=== PATIENT | female | born 1935 | race Caucasian/White ===

== ENCOUNTER 2016-07-05 05:41 | Inpatient (IN) | payer OTHER ==
--- NOTE | 2016-06-19 15:42 | PAT Medication Instructions ---
Service Date Jun 19, 2016. Current Home Medication List Amlodipine (Norvasc), 5 MG PO QAM Aspirin Enteric Coated (Ecotrin Or Generic *), 81 MG PO 3XWK Atorvastatin (Lipitor), 10 MG PO QPM Benazepril (Lotensin), 20 MG PO QAM Calcium Citrate-Vitamin D (Citracal + D3 Maximum), 1 TAB PO BID Cholecalciferol (Vitamin D3), 1 TAB PO QPM Fish Oil ([place]-3), 1,400 MG PO QPM Ibandronate Sodium (Boniva), 150 MG PO MONTHLY Multivitamin (Multivitamin), 1 TAB PO 3XWK Naproxen (Aleve), 220 MG PO PRN Vitamin B Cmplx/Vitc/Folic Ac (Nephrocaps), 1 CAP PO QAM [Metrogel], 1 DOSE TOP HS Medication Instructions For Your Scheduled Surgery - Continue as directed: Ibandronate Sodium (Boniva), 150 MG PO MONTHLY - Hold the following medications 2 weeks prior to surgery: Fish Oil ([place]-3), 1,400 MG PO QPM - Hold the following medications the morning of surgery: Benazepril (Lotensin), 20 MG PO QAM Calcium Citrate-Vitamin D (Citracal + D3 Maximum), 1 TAB PO BID Multivitamin (Multivitamin), 1 TAB PO 3XWK Vitamin B Cmplx/Vitc/Folic Ac (Nephrocaps), 1 CAP PO QAM Naproxen (Aleve), 220 MG PO PRN - Take the following medications the morning of surgery with a sip of water OTHERWISE NOTHING TO EAT OR DRINK AFTER MIDNIGHT: Amlodipine (Norvasc), 5 MG PO QAM Aspirin Enteric Coated (Ecotrin Or Generic *), 81 MG PO 3XWK - Take the following medications as scheduled the night before surgery: Atorvastatin (Lipitor), 10 MG PO QPM Calcium Citrate-Vitamin D (Citracal + D3 Maximum), 1 TAB PO BID Cholecalciferol (Vitamin D3), 1 TAB PO QPM [Metrogel], 1 DOSE TOP HS If you have any questions please call us at [phone] (Gail Ye PA-C ) or [phone] or [phone]
[2016-06-19 16:04] LABS: BASO % 0.1 %; BASO ABS # 0.01 K/uL (0-0.2); COMPLETE YES; EOS % 2.5 %; HEMATOCRIT 37.4 % (37-47); IG% 0.3 %; LYMPH % 28.5 %; LYMPH ABS # 2.17 K/uL (1.2-3.4); MEAN CELL VOLUME 86.6 fL (80-100); MEAN CORPUSCULAR HEMOGLOBIN 29.6 pg (25-34); MEAN CORPUSCULAR HGB CONC 34.2 g/dl (32-36); MEAN PLATELET VOLUME 9.5 fL (7.4-10.4); MONO % 8.4 %; NEUT % 60.2 %; PLATELET COUNT 262 K/uL (130-400); RED BLOOD COUNT 4.32 M/uL (4.2-5.4); WHITE BLOOD COUNT 7.62 K/uL (4.8-10.8)
--- NOTE | 2016-06-19 16:20 | DIAGNOSTIC IMAGING REPORT ---
TWO VIEW CHEST CLINICAL HISTORY: Preoperative examination. FINDINGS: PA and lateral chest radiographs are compared to study dated 12/06/2010. The cardiomediastinal silhouette is unremarkable. There is atherosclerotic calcification of the thoracic aorta. Chronic interstitial thickening is noted. There is mild chronic elevation of the right hemidiaphragm. No airspace consolidation or pleural effusion is seen. There is no pneumothorax. The skeletal structures are osteopenic. Degenerative change mild scoliosis is noted in the thoracic spine. IMPRESSION: No active disease in the chest. Electronically signed by: Aroldo Rosas M.D. 06/19/2016 4:18 PM Dictated Date/Time: 06/19/2016 4:17 PM
[2016-06-19 16:31] LABS: BUN/CREATININE RATIO 27.1 (10-20); CALCIUM 9.7 mg/dl (8.5-10.1); CREATININE 0.78 mg/dl (0.60-1.20); POTASSIUM 3.9 mmol/L (3.5-5.1)
[2016-06-20 17:05] LABS: INR 1.1 (0.9-1.1); PROTHROMBIN TIME (PATIENT) 11.3 SECONDS (9.0-12.0)
[~2016-07-05] VITALS: Ht 162.6 cm; Wt 54.6 kg
[2016-07-05] VITALS (20 sets, daily range): BP systolic 86–203; BP diastolic 33–91; PULSE 35–101; TEMP 34.6–36.6; O2SAT 93–100; Ht 162.6 cm; Wt 54.6 kg
[~2016-07-05 05:41] MED LIST: AMLO-110 PO; ASPEC81 PO; ATOR10TA88 PO; B-COCAP2 PO; BENA10TA10 PO; CALC1TAB9 PO; CHOL1000 PO; IBAN150T PO; METROGEL TOP; MULT-506 PO; NAPR1TAB9 PO; OMEG10007 PO
[2016-07-05] MEDS ORDERED: LACTATED RINGER'S 1000ML 1,000 ML IV SCH (06:00)
[2016-07-05] MEDS ORDERED: SODIUM CHLORIDE 0.9% 1000ML 1,000 ML IV SCH (06:00)
[2016-07-05] MEDS ORDERED: CEFAZOLIN 1000MG/55 ML D5W IV SCH (06:00)
--- NOTE | 2016-07-05 06:13 | History and Physical ---
History & Physical CC: Left internal carotid artery stenosis HPI: Ms. Weller states that she has no history of TIA or CVA. However, she does state that her sister who is her twin sister underwent a carotid artery surgery approximately 20 years ago due to the similar problem. She herself is a nonsmoker and states that her primary medical problems at this point consist of hypertension. The patient states that she went for an ultrasound of her carotid arteries due to having a history of some plaque in there and was found to have over 70% stenosis on ultrasound. She was then sent for a CTA evaluation , which indicated 80% stenosis of her left internal carotid artery. The patient denies any associated symptoms at this time including amaurosis, facial droop, difficulty speaking or swallowing, extremity weakness, numbness or tingling, sudden confusion or other complaints. 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 She states that she does not lose vision completely during these episodes and that they have been happening for years without any other associated symptoms. She denies fevers, chills, nausea, vomiting, chest pain, shortness of breath, abdominal pain, claudication, rest pain, nonhealing wounds or ulcers or other complaints. ALLERGIES: Include no known allergies. HOME MEDICATIONS: Reconciled on the chart and include the following: Aspirin, benazepril, Boniva, calcium/vitamin D, ciclopirox topical solution, EPA, fish oil, Lipitor, MetroGel 1% topical, multivitamin, Norvasc, vitamin B complex and vitamin D3. PAST MEDICAL HISTORY: Positive for hypercholesterolemia, hypertension, osteopenia and rosacea. PAST SURGICAL HISTORY: Positive for cataract surgery, oral surgery, tonsillectomy, tubal ligation. FAMILY HISTORY: Positive for carotid disease in her sister, heart disease and hypertension in her mother and father. SOCIAL HISTORY: Negative for tobacco, alcohol or drug use. REVIEW OF SYSTEMS: Negative for fatigue, fevers, sweats, weight loss, exercise intolerance, abnormal moles or rashes, vision changes or photophobia, ear pain, sinus problems or sore throat, cough, shortness of breath, hemoptysis or wheezing, chest pain, palpitations, edema or syncope, abdominal pain, nausea, vomiting, diarrhea, constipation, dysuria, hematuria, muscle weakness, headaches , dizziness, numbness or seizures. PHYSICAL EXAMINATION: Her vital signs are as follows: Blood pressure 162/66 in the right arm, 154/74 in the left, heart rate of 52, and oxygen 98% on room air. The patient is 162.56 cm tall and weighs 54.3 kilograms. Constitutional: In general, the patient is a healthy for age appearing, well-nourished, well- developed elderly female in no acute distress. She is active, alert and oriented x4 with normal recent and remote memory. Her head is normocephalic and atraumatic. Eyes are EOMI. Her ENMT exam demonstrates no hearing loss, rhinorrhea or pharyngeal erythema. Her neck is supple, nontender with midline trachea without masses or crepitus. Lung exam demonstrates no dyspnea. They are clear to auscultation bilaterally. Cardiovascular exam demonstrates nondisplaced apical impulse with a regular rate and rhythm without murmurs, lifts, heaves, thrills or gallops. Peripheral pulses full and equal in all extremities unless otherwise noted, specifically they are normal in her carotid , brachial, radial and femoral pulses. On her bilateral lower extremity distal pulses are +2 DP and +1 PT with brisk capillary refill and no sign of distal ischemia. The patient demonstrates a faint left carotid bruit, none on the right. She has no subclavian abdominal or femoral bruits noted. Her abdomen is soft, nontender with normoactive bowel sounds in all 4 quadrants without guarding or rebound. There is no flank or CVA tenderness. I am unable to appreciate any pulsatile mass. Her musculoskeletal exam demonstrates normal tone and strength for age. Bilateral upper extremities demonstrate no cyanosis , edema, clubbing, varicosities or ulcers. Bilateral lower extremities demonstrate no cyanosis, edema, clubbing, varicosities or ulcers. Neurologically, the patient has grossly intact cranial nerves and grossly intact sensation with a normal gait and station. 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 PLAN: Patient is admitted for a left CEA. I have discussed the risks options and benefits of the procedure with the patient. The patient understands the risks options and benefits and agrees to the procedure.
[2016-07-05 06:54] LABS: BUN/CREATININE RATIO 24.8 (10-20); CALCIUM 9.9 mg/dl (8.5-10.1); CREATININE 0.83 mg/dl (0.60-1.20); POTASSIUM 4.1 mmol/L (3.5-5.1)
[2016-07-05] MEDS ORDERED: PROPOFOL IV EMULSION 10 MG/ML 20 ML VIAL IV ONE (06:56)
[2016-07-05] MEDS ORDERED: LIDOCAINE HCL 2% 2 ML VIAL (20MG/ML) ONE (06:56)
[2016-07-05] MEDS ORDERED: FENTANYL CITRATE INJ 50 MCG/1 ML 2 ML VIAL ONE (06:56)
--- NOTE | 2016-07-05 07:17 | History & Physical Bridge Note ---
H&P Re-Evaluation Bridge Note: I have examined the patient, reviewed the History & Physical and in the interval since the performance of the History & Physical I have noted the following changes of clinical significance: No changes noted
[2016-07-05] MEDS ORDERED: IV FLUIDS COMPLETED PRN (07:45)
[2016-07-05] MEDS ORDERED: ROCURONIUM BROMID 50MG/5ML SYR ONE (08:31)
[2016-07-05] MEDS ORDERED: PHENYLEPHRINE HCL INJ 10 MG/ML VIAL ONE (08:31)
[2016-07-05] MEDS ORDERED: ROCURONIUM BROMIDE 10 MG/ML 5 ML VIAL ONE ×2 (08:31→08:44)
[2016-07-05] MEDS ORDERED: HEPARIN SOD (PORCINE) 1000 UNIT/ML 10 ML VIAL ONE (08:32)
[2016-07-05] MEDS ORDERED: ONDANSETRON INJ 2 MG/ML 2 ML VIAL ONE (09:13)
[2016-07-05] MEDS ORDERED: CEFAZOLIN SOD 1 GM VIAL IRRIG ONE (09:18)
[2016-07-05] MEDS ORDERED: HEPARIN SOD (PORCINE) 1000 UNIT/ML 10 ML VIAL FLUSH ONE (09:18)
[2016-07-05] MEDS ORDERED: GELATIN SPONGE 12-7MM TOP ONE (09:18)
[2016-07-05] MEDS ORDERED: THROMBIN FOR SOLN 20000 UNIT KIT TOP ONE (09:18)
[2016-07-05] MEDS ORDERED: BUPIVACAINE/EPINEPHRINE 0.5% MPF 1:200,000 30 ML VIAL INJ ONE (09:21)
[2016-07-05] MEDS ORDERED: D5W AND 1/2NSS 1,000 ML IV SCH (09:24)
[2016-07-05] MEDS ORDERED: NITROGLYCERIN/D5W 100 MCG/ML 250 ML IV PRN (09:24)
--- NOTE | 2016-07-05 09:25 | [facility] Post Operative Brief Note ---
Immediate Operative Summary Operative Date Jul 05, 2016. Pre-Operative Diagnosis Left internal carotid artery stenosis Post-Operative Diagnosis Same as preop Procedure(s) Performed Left Carotid Endarterectomy Surgeon Dr. Glover Limousine [employer]se Upholsterer Surgeon(s) Sandip Johnson PA-C Estimated Blood Loss 150 cc Findings Severe stenosis left ica origin Specimens A: left internal carotid artery plaque Anesthesia Alex Complication(s) None Disposition Recovery Room / PACU
[2016-07-05] MEDS ORDERED: METOPROLOL TARTRATE 1 MG/ML VIAL IV PRN (09:30)
[2016-07-05] MEDS ORDERED: ACETAMINOPHEN 325 MG TAB PO PRN (09:30)
[2016-07-05] MEDS ORDERED: MoRPHine SULFATE 4 MG/ML 1 ML CARP\\VIAL IV PRN (09:30)
[2016-07-05] MEDS ORDERED: OXYCODONE/ACETAMINOPHEN 5-325 TAB PO PRN (09:30)
[2016-07-05] MEDS ORDERED: ONDANSETRON INJ 2 MG/ML 2 ML VIAL IV PRN ×2 (09:30→10:00)
[2016-07-05] MEDS: LABETALOL HCL IV 5 MG/ML 20ML IV PRN ×2 (09:55→10:00)
--- NOTE | 2016-07-05 09:55 | OPERATIVE REPORT ---
DATE OF OPERATION: 07/05/2016 PREOPERATIVE DIAGNOSIS: Left internal carotid artery stenosis. POSTOPERATIVE DIAGNOSIS: Same. PROCEDURE: Left carotid endarterectomy with patch angioplasty. SURGEON: Dr. Glover. TURBO ELECTRIC OPERATOR: Aruna Johnson PA-C. ANESTHETIC: General. PROCEDURE INDICATIONS: The patient is an 80-year-old female in fairly good health who was found to have an 80% stenosis of her left carotid artery with what appeared to be soft hemorrhagic plaque. Endarterectomy was recommended. She understood the risks, options and benefits and agreed to go ahead with this procedure. OPERATION AND FINDINGS: The patient was taken to the operating room and placed in supine position. After general anesthesia was accomplished, left side neck was prepped and draped in a sterile manner. A longitudinal neck incision was then made. This was carried down through the platysmal layer. The common carotid artery was identified at the omohyoid muscle. Dissection was carried upward. She had extremely low bifurcation and bifurcation was fairly quickly. The internal and external carotid arteries were isolated. The internal was isolated beyond the area of narrowing. The hypoglossal could be seen up above the operative site. The external carotid was slung with vessel loops. and the superior thyroid artery with a 2-0 silk suture. The patient was heparinized at that time, adequate heparinization was accomplished. The external, internal and common carotid arteries were then clamped. Longitudinal arteriotomy was started on the common carotid artery extended upward along the internal carotid artery. The Doppler shunt was then placed in the internal followed by the common carotid artery. They were held in place with Last clamps. The flow could be heard going through the shunt at that time. The arteriotomy had been extended above and below where the plaque was. The plaque was a fairly large sized calcified plaque with a small area of subacute hemorrhage. It caused a near occlusion of the internal carotid artery at its origin. Endarterectomy was started on the common carotid artery. This was extended upward along the internal until a nice feathering breakoff point was accomplished. This was done fairly easily. The endarterectomy was then carried down along the common carotid artery. Proximal breakoff point was accomplished using the Pott scissors. The external carotid was everted and endarterectomized. After the plaque was removed all loose debris and flaps were removed under loop magnification. After this was done, I inspected the proximal breakoff point. A slight little more plaque was removed and breakoff point was smoothed out with Pott scissors. Distally there was a fairly good breakoff point. There was one area which was a little concerning of being a little bit loose in the back wall. This was tacked down with two 7-0 Prolene sutures. After that was completed, the arteriotomy site was then closed using the Acuseal patch and CV6 Holland-Van suture. Prior to completing the closure the shunt was removed. Backbleeding and forward bleeding was allowed to occur. The clamps were replaced. The flow surface was irrigated with heparinized saline. The final few sutures were placed and securely tied. Clamps were removed off the external common followed by the internal carotid artery. We did backbleed the internal and external prior to unclamping. Adequate hemostasis was then noted. There was slight needle hole bleeding along the medial aspect. This was controlled with Gelfoam and thrombin. After adequate hemostasis was noted, the wound was irrigated with antibiotic solution and closed with a running 3-0 Vicryl suture for the platysmal layer and a 4-0 subcuticular Vicryl suture for the skin edges. Dermabond was used for a dressing. The patient left the operating room in good condition and tolerated the procedure well. Aruna Johnson assisted due to lack of resident availability. I attest to the content of the Intraoperative Record and any orders documented therein. Any exceptions are noted below. VICKY
[2016-07-05] MEDS ORDERED: FENTANYL CITRATE INJ 50 MCG/1 ML 2 ML VIAL IV PRN (10:00)
[2016-07-05] MEDS ORDERED: PHENYLEPHRINE 100MCG/ML 5ML SYR IV PRN (10:00)
[2016-07-05] MEDS ORDERED: ATROPINE SULFATE 0.1 MG/ML 5ML SYR IV PRN (10:00)
[2016-07-05] MEDS ORDERED: PROMETHAZINE HCL INJ 6.25 MG in SODIUM CHLORIDE 0.9% 50ML 50 ML IV PRN (10:00)
[2016-07-05] MEDS ORDERED: EpHEDrine SULFATE INJ 50 MG/ML AMP IV PRN (10:00)
--- NOTE | 2016-07-05 10:29 | DIAGNOSTIC IMAGING REPORT ---
CT OF THE HEAD WITHOUT CONTRAST CLINICAL HISTORY: Severe left sided headache following left carotid endarterectomy. COMPARISON STUDY: Head CT May 29, 2007 and MRI of the brain July 01, 2014. CT DOSE: 912.23 mGycm TECHNIQUE: Helical axial images of the head were obtained without IV contrast. Automated exposure control was utilized for the study. FINDINGS: No acute intracranial hemorrhage, midline shift or mass effect is present. Ventricular system is unremarkable. The basilar cisterns are patent. There are no extra-axial collections. Moderate white matter hypodensities likely reflect small vessel disease. There is equivocal loss of jeter-white differentiation within the left insular cortex. This could be artifactual. There are no significant calvarial abnormalities. Visualized portions of the sinuses and mastoid air cells are clear. IMPRESSION: 1. No acute intracranial hemorrhage or mass effect. 2. Equivocal loss of jeter-white differentiation within the left insular cortex. This may be artifactual. However, if suspicion for acute infarct, an MRI could be obtained. Electronically signed by: Sergio Stevens M.D. 07/05/2016 10:28 AM Dictated Date/Time: 07/05/2016 10:21 AM
--- NOTE | 2016-07-05 11:03 | Critical Care Consultation ---
Critical Care Consultation Date of Consultation: Jul 05, 2016. Attending Physician: Seth Glover M.D. Reason for Consultation: Post CEA bradycardia History of Present Illness This is an 80 y/o F with a history of HTN, DLD who was admitted today for left carotid endarterectomy. This was an elective procedure after being found to have 80% stenosis on CTA eval outpatient. She was not symptomatic from this. She does have a history of ocular migraines. After the procedure she was found to be bradycardic (though she tends to live with a lower HR generally) and there was concern for CVA/TIA. She did have a headache prior to the procedure and was started on Nitro drip. She was transferred to the ICU for further management. Past Medical/Surgical History Cataract surgery, oral surgery, tonsillectomy, tubal ligation. Family History Carotid stenosis - sister CAD, HTN- mom, dad Social History Smoking Status: Never Smoker Alcohol Use: none Drug Use: none Allergies Coded Allergies: Cholesterol (Verified Allergy, Unknown, UNKNOWN CHOLESTEROL MED - MYALGIA , 07/05/16) Home Medications Scheduled Amlodipine (Norvasc), 5 MG PO QAM Aspirin Enteric Coated (Ecotrin Or Generic *), 81 MG PO 3XWK Atorvastatin (Lipitor), 10 MG PO QPM Benazepril (Lotensin), 20 MG PO QAM Calcium Citrate-Vitamin D (Citracal + D3 Maximum), 1 TAB PO BID Cholecalciferol (Vitamin D3), 1 TAB PO QPM Fish Oil ([place]-3), 1,400 MG PO QPM Ibandronate Sodium (Boniva), 150 MG PO MONTHLY Multivitamin (Multivitamin), 1 TAB PO 3XWK Naproxen (Aleve), 220 MG PO PRN Vitamin B Cmplx/Vitc/Folic Ac (Nephrocaps), 1 CAP PO QAM [Metrogel], 1 DOSE TOP HS Current Inpatient Medications Current Inpatient Medications Medications (Trade) Dose Ordered Sig/Anaid Route Start Time Stop Time Status Last Admin Dose Admin Lactated Ringer's 1,000 ml @ 15 mls/hr Q24H IV 07/05/16 06:00 07/06/16 05:59 07/05/16 06:50 15 MLS/HR Sodium Chloride 1,000 ml @ 80 mls/hr [id number] IV 07/05/16 06:00 07/05/16 18:29 07/05/16 06:25 80 MLS/HR Cefazolin Sodium (Ancef 1000mg/55 ml D5W) 55 ml @ 100 mls/hr PREOP IV 07/05/16 06:00 07/06/16 05:59 Miscellaneous (Iv Fluids Completed) 1 ea PRN PRN N/A 07/05/16 07:45 07/05/17 07:44 Acetaminophen (Tylenol Tab) 650 mg Q4H PRN PO 07/05/16 09:30 08/04/16 09:29 UNV Oxycodone/ Acetaminophen (Percocet 5-325mg Tab) FOR MODERATE PAIN ... Q4H PRN PO 07/05/16 09:30 07/19/16 09:29 UNV Morphine Sulfate (MoRPHine SULFATE INJ) 4 mg Q4H PRN IV 07/05/16 09:30 07/19/16 09:29 UNV Ondansetron HCl 4 mg 4 mg Q6H PRN IV 07/05/16 09:30 08/04/16 09:29 UNV Cefazolin Sodium/ Dextrose (Ancef Iv/D5 50ml) 55 ml @ 100 mls/hr Q8H IV 07/05/16 09:30 07/05/16 18:02 UNV Metoprolol Tartrate 5 mg 5 mg Q10M PRN IV 07/05/16 09:30 08/04/16 09:29 UNV Nitroglycerin/ Dextrose 250 ml @ 0 mls/hr Q0M PRN IV 07/05/16 09:24 08/04/16 09:23 UNV Dextrose/Sodium Chloride (D5W And 1/2nss) 1,000 ml @ 125 mls/hr Q8H IV 07/05/16 09:24 08/04/16 09:23 UNV Enoxaparin Sodium (Lovenox Inj) 30 mg Q12H SQ 07/05/16 20:00 08/04/16 19:59 UNV Fentanyl Citrate (Fentanyl Inj) 50 mcg Q5M PRN IV 07/05/16 10:00 07/05/16 16:00 Ondansetron HCl 4 mg 4 mg ONE PRN IV 07/05/16 10:00 07/05/16 16:00 Promethazine HCl/ Sodium Chloride (Phenergan Inj/ Nss 50ml) 50.25 ml @ 202 mls/hr ONE PRN IV 07/05/16 10:00 07/05/16 16:00 Labetalol HCl (Normodyne IV) 5 mg Q5M PRN IV 07/05/16 10:00 07/05/16 16:00 Ephedrine Sulfate (EpHEDrine SULFATE INJ) 5 mg Q5M PRN IV 07/05/16 10:00 07/05/16 16:00 Atropine Sulfate (Atropine Sulfate 0.1MG/Ml Inj) 0.5 mg Q1M PRN IV 07/05/16 10:00 07/05/16 16:00 Phenylephrine HCl 100 mcg 100 mcg Q5M PRN IV 07/05/16 10:00 07/05/16 16:00 Methylprednisolone Sodium Succinate/ Syringe (Solu-Medrol IV/ Syringe) 0.64 ml @ 1.5 mls/min Q6 IV 07/05/16 10:15 07/06/16 00:01 UNV Review of Systems Constitutional: No chills, No fever Eyes: No worsening of vision ENT: + problem reported (pain along left neck/ cheek), No hearing loss Respiratory: No cough, No dyspnea on exertion, No shortness of breath, No sputum, No wheezing Cardiovascular: No chest pain Abdomen: No nausea, No pain, No vomiting Genitourinary - Female: No dysuria, No urinary frequency, No urinary urgency Physical Exam Date Time Temp Pulse Resp B/P Pulse Ox O2 Delivery O2 Flow Rate FiO2 07/05/16 06:15 36.6 50 18 165/79 98 Room Air 07/05/16 06:14 36.6 54 18 151/71 98 Room Air General Appearance: WD/WN, no apparent distress Head: normocephalic, atraumatic Eyes: normal inspection, PERRL, EOMI ENT: hearing grossly normal Neck: supple, trachea midline, + pertinent finding (S/P Left CEA, scar is clean dry intact, no midline shift ) Respiratory/Chest: lungs clear, normal breath sounds, no respiratory distress Cardiovascular: no edema, + bradycardia Abdomen/GI: normal bowel sounds, non tender, soft Extremities/Musculoskelatal: normal inspection, no calf tenderness, no pedal edema 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, no motor/sensory deficits, alert, normal mood/affect Skin: normal color Laboratory Results Last 24 Hours Test 07/05/16 05:56 07/05/16 06:08 Sodium Level 144 mmol/L Potassium Level 4.1 mmol/L Chloride Level 108 mmol/L Carbon Dioxide Level 28 mmol/L Anion Gap 8.0 mmol/L Blood Urea Nitrogen 21 mg/dl Creatinine 0.83 mg/dl Est Creatinine Clear Calc Drug Dose 44.6 ml/min Estimated GFR () 76.1 Estimated GFR (Non- 65.7 BUN/Creatinine Ratio 24.8 Random Glucose 96 mg/dl Calcium Level 9.9 mg/dl Bedside Glucose 84 mg/dl Assessment & Plan This is an 80 y/o F who is day 0 s/p Left CEA, admitted to the ICU for bradycardia and questionable neurological symptoms after the procedure. Concerns s/p CEA include hemodynamic or neurologic compromise as well as hematoma which she will be monitored for while in the ICU. Asymptomatic Bradycardia: Patient tends to run lower On nitro drip for HTN and hemodynamic stability after vascular surgery Given a small dose of labetalol; unlikely to have a major effect and will resolve quickly will continue to monitor ? Neurologic symptoms Obviously a concern for embolic phenomena, CVA/TIA after CEA. However, At the moment her Neuro exam is normal. She looks as if she has a left sided droop however, this is likely due to the pain/ discomfort after the procedure. CN 2- 12 intact. Will do neuro checks Hold on Tele neuro consult for now. Head CT with no hemorrhage or mass effect s/p Left CEA Repeat ultrasound at bedside is concerning for an area of echogenicity, ?clot, confirmed by radiology- Dr. Glover notified HTN: Recommend nicardipine over nitro drip due to headaches. attending addendum, post op day 0, CEA on the left, the pt started with sinus bradycardia but good BP requiring NTG drip to lower it. started on oral intake and able to swallow without difficulty. I have examined the pt several times neurologically which showed, all cranial nerves II to XII to be intact to my exam. on three different occasions. 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 the pt is alert and oriented, minimal facial numbness and weakness on the left due to recent intubation , which has been improving. the pt is able to tolerate oral intake. no dysphagia. bradycardia is improving. BP is recovering , NTG drip is weaning as well. carotid US results noted and discussed with Dr. Glover , will continue to follow clinically, no evidence of any neurologic compromise , no hematoma at the surgical site. BP and HR returning to normal. discussed in details with several services including vascular, radiology and nursing staff at the bed side. CCT 60 min.
[2016-07-05] MEDS: METHYLPREDNISOLONE IV 40 MG in SYRINGE 0 ML IV SCH ×3 (11:23→22:59)
[2016-07-05] MEDS ORDERED: CEFAZOLIN IV 1,000 MG in DEXTROSE 5% 50ML 50 ML IV SCH ×2 (11:30→18:00)
--- NOTE | 2016-07-05 11:37 | DIAGNOSTIC IMAGING REPORT ---
ULTRASOUND CAROTID DOPPLER LEFT SIDE ONLY CLINICAL HISTORY: Severe headache status post carotid artery to be COMPARISON STUDY: CT angiography dated 05/25/2016 TECHNIQUE: Real-time, grayscale, and color Doppler sonography of the carotid arteries was performed. Imaging reviewed in the transverse and longitudinal planes. NASCET criteria was utilized for stenosis calcification. FINDINGS: There is an area of intraluminal echogenicity within the proximal aspect of the left carotid bulb. This difficult to determine whether this reflects thrombus, or artifact from recent surgery. The peak systolic velocity within the left internal carotid artery was 157 cm/s. The peak systolic velocity within the left common carotid artery was 50 cm/s. This yields an elevated systolic to diastolic ratio 3.1. In addition there is an elevated external carotid artery velocity of 464 cm/s. The left tibial artery was patent. The limitations of an immediate postsurgical ultrasound were discussed with Dr. Glover. CT angiography of the head and neck was recommended in follow-up. IMPRESSION: 1. Difficult study to interpret 2. Area of apparent absent flow and echogenicity at the level the proximal carotid bulb. It is conceivable this is artifactual given the recent surgery. This could represent dirty shadowing from air at the operative bed.. 3. Elevated external carotid artery velocity, suggesting a external carotid artery stenosis. 4. Although the left internal carotid artery waveform demonstrated a normal upstroke, the velocity was mildly elevated measuring 157 cm/s. 5. Given the indeterminate ultrasound findings, and the patient's clinical history, CT angiography of the head and neck is recommended in follow-up. This report was discussed with Dr. Glover. Electronically signed by: Aaron Stiles M.D. 07/05/2016 11:35 AM Dictated Date/Time: 07/05/2016 11:22 AM
[2016-07-05] MEDS ORDERED: AMIODARONE 360MG / 200ML D5W ONE (12:28)
[2016-07-05] MEDS ORDERED: AMIODARONE 150MG / 100ML D5W ONE (12:28)
--- NOTE | 2016-07-05 12:47 | Anesthesiology Progress Note ---
Anesthesia Post Op Note Date & Time Jul 05, 2016 at 12:44 Vital Signs Pain Intensity: 2 Vital Signs Past 12 Hours Date Time Temp Pulse Resp B/P Pulse Ox O2 Delivery O2 Flow Rate FiO2 07/05/16 12:15 40 18 119/54 100 Nasal Cannula 2.0 113/42 07/05/16 12:00 34.6 35 16 107/63 100 Nasal Cannula 2.0 118/44 07/05/16 11:45 39 14 139/60 100 Nasal Cannula 4.0 129/46 07/05/16 11:15 33 10 127/57 100 Nasal Cannula 4 112/29 07/05/16 11:00 34.7 40 16 140/59 100 Nasal Cannula 4 143/49 07/05/16 10:45 35 13 137/57 100 Mask 4 134/46 07/05/16 10:30 34.5 37 14 144/65 100 Mask 10 07/05/16 10:05 50 16 160/69 100 Mask 10 169/68 07/05/16 10:00 53 16 180/73 100 Mask 10 184/80 07/05/16 09:50 51 16 142/64 100 Mask 10 156/68 07/05/16 09:40 36.2 52 16 173/68 100 Mask 10 177/83 07/05/16 06:15 36.6 50 18 165/79 98 Room Air 07/05/16 06:14 36.6 54 18 151/71 98 Room Air Notes Mental Status: alert / awake / arousable, participated in evaluation Pt Amnestic to Procedure: Yes Nausea / Vomiting: adequately controlled Pain: adequately controlled Airway Patency, RR, SpO2: stable & adequate BP & HR: stable & adequate Hydration State: stable & adequate Anesthetic Complications: no major complications apparent Patient not sufficiently responsive to labetalol intermittant boluses for HTN. Dr Glover ordered NTG gtt which was effective for pain control. Shortly before leaving PACU, the patient did have an acute facial droop per staffing rn which very quickly resolved and she also complained of a headache. The patient was transported to CT which was read as no acute infarct or bleed, and she was immediately transported to the ICU for her planned overnight stay. In the ICU the patient was completely neurologically intact and at baseline. 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 The copper miner had also evaluated the patient and assumed continuing management of her care at this point.
--- NOTE | 2016-07-05 13:34 | Progress Note ---
Progress Note I assisted Dr Glover with Keith Weller's Left Carotid Endarterectomy on 07/05/16, d /t lack of resident availability.
[2016-07-05] MEDS ORDERED: NURSING VERBAL MED ORDER ONE (15:15)
[2016-07-05] MEDS: SODIUM CHLORIDE 0.9% 1000ML 1,000 ML IV SCH ×2 (15:24→22:59)
[2016-07-05] MEDS ORDERED: SODIUM CHLORIDE 0.9% 500ML 500 ML IV ONE (15:30)
[2016-07-05] MEDS: ENOXAPARIN 30 MG/0.3 ML SYR SQ SCH (20:25)
[2016-07-06] VITALS (24 sets, daily range): BP systolic 101–184; BP diastolic 38–111; PULSE 48–81; TEMP 36.6–36.7; O2SAT 94–100
[2016-07-06] MEDS: METHYLPREDNISOLONE IV 40 MG in SYRINGE 0 ML IV SCH (05:15)
[2016-07-06] MEDS: SODIUM CHLORIDE 0.9% 1000ML 1,000 ML IV SCH (07:49)
[2016-07-06] MEDS: ENOXAPARIN 30 MG/0.3 ML SYR SQ SCH (07:50)
[2016-07-06] MEDS ORDERED: AMLODIPINE BESYLATE 5 MG TAB PO SCH (09:00)
[2016-07-06] MEDS ORDERED: ENALAPRIL MALEATE 10 MG TAB PO SCH (09:00)
--- NOTE | 2016-07-06 10:10 | Critical Care Progress Note ---
Critical Care Progress Note Date of Service Jul 06, 2016. Attending Dr. Becerra Subjective asymptomatic and no events overnight. BP controlled, no neuro deficit over the monitoring for the past 24 hours. Objective asymptomatic except for mild numbness in the left lower lip area, improving slowly, no dysphagia or dysphonia, no focal weakness , no pain or sob. the rest of her ROS was unremarkable. Assessment & Plan CEA left sided. 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 no effect on fine skills including swallowing and phonation. HTN, on ACEI and Amlodipine at home. Plan: dc A line. dc IVF, the pt is orally fed. resume ACEI and amlodipine. discussed with the staff on rounds. ambulate. disposition plan per Dr. Glover. pt eval. CCt 35 min, Data Medications: Current Inpatient Medications Medications (Trade) Dose Ordered Sig/Anaid Route Start Time Stop Time Status Last Admin Dose Admin Miscellaneous (Iv Fluids Completed) 1 ea PRN PRN N/A 07/05/16 07:45 07/05/17 07:44 Acetaminophen (Tylenol Tab) 650 mg Q4H PRN PO 07/05/16 09:30 08/04/16 09:29 Oxycodone/ Acetaminophen (Percocet 5-325mg Tab) FOR MODERATE PAIN ... Q4H PRN PO 07/05/16 09:30 07/19/16 09:29 Morphine Sulfate (MoRPHine SULFATE INJ) 4 mg Q4H PRN IV 07/05/16 09:30 07/19/16 09:29 Ondansetron HCl (Zofran Inj) 4 mg Q6H PRN IV 07/05/16 09:30 08/04/16 09:29 Metoprolol Tartrate 5 mg 5 mg Q10M PRN IV 07/05/16 09:30 08/04/16 09:29 Nitroglycerin/ Dextrose (Nitroglycerin/ D5w 100 Mcg/Ml) 250 ml @ 0 mls/hr Q0M PRN IV 07/05/16 09:24 08/04/16 09:23 Enoxaparin Sodium (Lovenox Inj) 30 mg Q12H SQ 07/05/16 20:00 08/04/16 19:59 07/06/16 07:50 30 MG Amlodipine Besylate (Norvasc Tab) 5 mg QAM PO 07/06/16 09:00 08/05/16 08:59 Enalapril Maleate (Vasotec Tab) 10 mg QAM PO 07/06/16 09:00 08/05/16 08:59 I & O: 24-Hour Column 07/06/16 08:00 Intake Total 4454 ml Output Total 3025 ml Balance 1429 ml Vital Signs: Date Time Temp Pulse Resp B/P Pulse Ox O2 Delivery O2 Flow Rate FiO2 07/06/16 07:30 Room Air 07/06/16 05:00 49 1 123/51 99 Nasal Cannula 2.0 106/38 07/06/16 04:00 36.6 50 0 116/49 98 Nasal Cannula 2.0 110/42 07/06/16 04:00 Room Air 07/06/16 03:00 57 15 130/48 100 Nasal Cannula 2.0 157/55 07/06/16 02:00 49 12 107/44 99 Nasal Cannula 2.0 130/52 07/06/16 01:00 48 12 101/38 94 Nasal Cannula 2.0 126/51 07/06/16 00:01 Room Air 07/05/16 23:58 36.6 49 17 151/54 93 Room Air 152/66 07/05/16 23:24 63 16 174/69 93 Room Air 187/83 07/05/16 22:55 72 17 179/74 97 Room Air 171/90 07/05/16 22:15 101 17 162/62 98 Room Air 166/78 07/05/16 22:01 101 23 195/89 98 Room Air 203/91 07/05/16 21:01 76 17 131/47 98 Room Air 153/75 07/05/16 20:00 36.4 64 25 157/57 99 Room Air 151/58 07/05/16 20:00 Room Air 07/05/16 18:00 56 18 127/70 97 Room Air 151/61 07/05/16 16:00 Room Air 07/05/16 16:00 36.4 61 21 134/56 97 Room Air 145/64 07/05/16 15:57 54 14 142/79 98 Room Air 137/55 07/05/16 15:30 53 26 128/56 94 Room Air 112/44 07/05/16 15:00 46 16 110/44 100 Nasal Cannula 2.0 98/39 07/05/16 14:22 44 15 104/44 100 Nasal Cannula 2.0 92/39 07/05/16 14:00 40 13 98/44 100 Nasal Cannula 2.0 86/34 07/05/16 13:30 40 13 106/46 100 Nasal Cannula 2.0 90/33 07/05/16 13:15 56 16 134/53 100 Nasal Cannula 2.0 121/53 07/05/16 12:15 40 18 119/54 100 Nasal Cannula 2.0 113/42 07/05/16 12:00 34.6 35 16 107/63 100 Nasal Cannula 2.0 118/44 07/05/16 11:45 39 14 139/60 100 Nasal Cannula 4.0 129/46 07/05/16 11:15 33 10 127/57 100 Nasal Cannula 4 112/29 07/05/16 11:00 34.7 40 16 140/59 100 Nasal Cannula 4 143/49 07/05/16 10:45 35 13 137/57 100 Mask 4 134/46 07/05/16 10:30 34.5 37 14 144/65 100 Mask 10 07/05/16 10:05 50 16 160/69 100 Mask 10 169/68 S1S2 RRR. BP 141/82. lungs are clear. abdomen is benign. no edema. Neuro, II to XII are intact, the numbness is peripheral nerve injury , not central ( not CVA nor TIA). no focality in her motor- sensori exam. ambulating to the chair independently. Laboratory Results: Last 24 Hours Test 07/05/16 10:35 07/05/16 16:35 07/05/16 21:04 07/05/16 23:37 Bedside Glucose 128 mg/dl 159 mg/dl 194 mg/dl 170 mg/dl
--- NOTE | 2016-07-06 10:30 | Anesthesiology Progress Note ---
Anesthesia Post Op Note Date & Time Jul 06, 2016 at 10:30 Vital Signs Pain Intensity: 0.0 Vital Signs Past 12 Hours Date Time Temp Pulse Resp B/P Pulse Ox O2 Delivery O2 Flow Rate FiO2 07/06/16 07:30 Room Air 07/06/16 05:00 49 1 123/51 99 Nasal Cannula 2.0 106/38 07/06/16 04:00 36.6 50 0 116/49 98 Nasal Cannula 2.0 110/42 07/06/16 04:00 Room Air 07/06/16 03:00 57 15 130/48 100 Nasal Cannula 2.0 157/55 07/06/16 02:00 49 12 107/44 99 Nasal Cannula 2.0 130/52 07/06/16 01:00 48 12 101/38 94 Nasal Cannula 2.0 126/51 07/06/16 00:01 Room Air 07/05/16 23:58 36.6 49 17 151/54 93 Room Air 152/66 07/05/16 23:24 63 16 174/69 93 Room Air 187/83 07/05/16 22:55 72 17 179/74 97 Room Air 171/90 Notes Mental Status: alert / awake / arousable, participated in evaluation Pt Amnestic to Procedure: Yes Nausea / Vomiting: adequately controlled Pain: adequately controlled Airway Patency, RR, SpO2: stable & adequate BP & HR: stable & adequate Hydration State: stable & adequate Anesthetic Complications: no major complications apparent
--- NOTE | 2016-07-06 13:06 | Progress Note ---
Progress Note Date of Service: Jul 06, 2016. Subjective No complaints, No swallowing difficulties. No speech problems Objective Vital Signs Vital Signs Past 12 Hours Date Time Temp Pulse Resp B/P Pulse Ox O2 Delivery O2 Flow Rate FiO2 07/06/16 12:00 Room Air 07/06/16 11:58 36.6 56 17 145/68 95 Room Air 07/06/16 11:46 81 24 181/87 07/06/16 10:38 70 19 164/72 07/06/16 10:28 63 16 177/70 07/06/16 10:00 64 26 153/61 95 Room Air 07/06/16 09:58 61 14 166/72 07/06/16 09:29 70 22 175/68 07/06/16 09:00 59 16 162/55 07/06/16 08:59 76 12 171/64 96 Room Air 07/06/16 08:28 64 20 169/67 07/06/16 08:00 59 17 07/06/16 08:00 Room Air 07/06/16 07:49 36.7 72 19 156/57 07/06/16 07:39 68 23 178/76 96 07/06/16 07:30 Room Air 07/06/16 07:29 77 27 184/111 07/06/16 07:07 66 20 160/81 07/06/16 07:00 79 26 181/87 07/06/16 05:00 49 1 123/51 99 Nasal Cannula 2.0 106/38 07/06/16 04:00 36.6 50 0 116/49 98 Nasal Cannula 2.0 110/42 07/06/16 04:00 Room Air 07/06/16 03:00 57 15 130/48 100 Nasal Cannula 2.0 157/55 07/06/16 02:00 49 12 107/44 99 Nasal Cannula 2.0 130/52 Exam VSS Afebrile Incision dry and clean Min droop of left lower lip. No other neuro deficits. Intake & Output 8-Hour Column 07/05/16 07/06/16 07/06/16 16:00 00:00 08:00 Intake Total 1851 ml 2603 ml Output Total 750 ml 2275 ml Balance 1101 ml 328 ml 24-Hour Column 07/06/16 08:00 Intake Total 4454 ml Output Total 3025 ml Balance 1429 ml Laboratory and Microbiology Results Past 24 Hours Test 1/25/17 16:35 07/05/16 21:04 07/05/16 23:37 07/06/16 10:56 Range/Units Bedside Glucose 159 194 170 150 70-90 mg/dl Imp: Post left CEA Plan: Doing well post op Will D/C home today
--- NOTE | 2016-07-06 13:08 | Discharge Instructions ---
Discharge Instructions Admission Reason for Admission: Left Internal Carotid Artery Stenosis Discharge Discharge Diagnosis / Problem: Left internal carotid artery stenosis Discharge Goals Goal(s): Therapeutic intervention Activity Recommendations Activity Limitations: per Instructions/Follow-up section . Instructions / Follow-Up Instructions / Follow-Up Call [phone] to schedule a follow up appointment if one not already scheduled. SPECIAL CARE INSTRUCTIONS: Medications: * Continue to take Aspirin as directed. Incision Care: * You may shower, but do not rub incision. You may let the warm soapy water run over it. Be sure to dry the incision well after bathing. * Do not shave directly over the incision until it is healed. * DO NOT IMMERSE THE INCISION IN A TUB/POOL/etc. UNTIL HEALED. Restrictions: * Do not drive for at least one week or if you are still taking any narcotic pain medication. * Do not lift anything heavier than a gallon of milk for one week after going home. Possible Complications: * Numbness - It is normal to have some numbness around the incision. Numbness can extend beyond the incision to areas of the neck, ear and face. The numbness is due to bruising of nerves during the surgery and will gradually improve over a period of months. * Hoarseness/Difficulty Speaking and Swallowing - The bruising of nerves in the neck can also cause a hoarse voice, difficulty speaking or swallowing. This may improve over time, HOWEVER, if it continues for more than a few days please contact our office ([phone]). * Excessive Swelling - There will be some swelling immediately after surgery which usually resolves within one week. If you notice that the swelling is getting worse, notify your surgeon ([phone]). * Drainage/Bleeding - If there is any drainage or bleeding, it should be a very small amount (less than a teaspoon per day). If you have excessive bleeding or drainage from the incision, call your surgeon ([phone]) right away. ACTIVATION OF EMERGENCY MEDICAL SYSTEM: Call [phone], immediately, if you experience any of the following: Warning Signs and Symptoms of Stroke: * Sudden numbness or weakness of the face, arm or leg, especially on one side of the body * Sudden confusion, trouble speaking or understanding * Sudden trouble seeing in one or both eyes * Sudden trouble walking, dizziness, loss of balance or coordination * Sudden severe headache with no cause Do not delay calling 911 if you experience any warning signs or symptoms of a stroke. Delay in seeking medical attention may affect what treatments can be given to you. Risk Factors for Stroke: You can reduce your chances of stroke by working with your medical provider to adopt a healthy lifestyle. Some specific ways to lower your chance of stroke are: * If you are a smoker, now is the time to stop smoking cigarettes * If you are diabetic, improve the control of your blood sugars * Avoid excessive amounts of alcohol * Control high blood pressure * Lose weight if you are overweight * Be sure to lead an active lifestyle * Eat a healthy diet low in salt, cholesterol and fat You should know about other risk factors for stroke that you are unable to control. These include: * Age 55 years or older * Male gender * Certain racial groups: , or / * Family History of Stroke, Mini stroke or Heart Attack * Sickle Cell Disease You will be receiving a call from the Vascular Surgery Nurse after you are discharged. FOLLOW UP VISIT: It is important for you to keep your follow up appointments with your medical provider. Keep any scheduled doctor appointments. Current Hospital Diet Patient's current hospital diet: AHA Diet (Heart Healthy) Discharge Diet Recommended Diet: AHA Diet (Heart Healthy) Procedures Procedures Performed: Left Carotid Endarterectomy Pending Studies Studies pending at discharge: no Medical Emergencies . Who to Call and When: Medical Emergencies: If at any time you feel your situation is an emergency, please call 911 immediately. . Non-Emergent Contact Non-Emergency issues call your: Surgeon . "Provider Documentation" section prepared by Seth Glover. VTE Core Measure Inpt VTE Proph given/why not?: Enoxaparin (Lovenox)SQ, SCD's
[2016-07-06] MEDS ORDERED: NITROGLYCERIN/D5W 100 MCG/ML BTL IV ONE (13:44)
--- NOTE | 2016-07-10 11:54 | DISCHARGE SUMMARY ---
SUPERVISING PHYSICIAN: Dr. Glover. ADMISSION DIAGNOSIS: Severe left internal carotid artery stenosis, asymptomatic. DISCHARGE DIAGNOSES: 1. Status post left carotid endarterectomy with patch. 2. Severe left internal carotid artery stenosis, asymptomatic. DISCHARGE CONDITION: Stable. CONSULTATIONS IN THE HOSPITAL: Included critical care. PROCEDURES WHILE IN THE HOSPITAL: Included: 1. Left internal carotid artery endarterectomy with patch which was performed without significant complications. She did have an EBL of 150 mL. HISTORY OF PRESENT ILLNESS: Ms. Weller is an 80-year-old female with minimal relative history of any medical problems. She has a history of hypertension only. She states that she had her carotid artery screened due to her sister having had a severe stenosis that required an endarterectomy as well, 20 years ago. She states that imaging did demonstrate a severe stenosis and she was told to see a vascular surgeon for further recommendations. CTA evaluation did confirm over 80% stenosis of her left internal carotid artery and you know the patient was asymptomatic. It was recommended that the patient consider undergoing a left carotid endarterectomy in order to minimize her risk of stroke. The procedure, risks, benefits, alternatives were discussed at length with the patient. She expressed understanding and in agreement to proceed. HOSPITAL COURSE: The patient was admitted on 07/05/2016 after undergoing her carotid endarterectomy. The procedure was essentially uncomplicated. The patient was neurologically stable prior to leaving the operating room. Postoperatively, her speech was somewhat sluggish and there was concern as to whether she may have had a stroke due to some mild droop of the right lip while her trachea remains midline, her tongue remained midline and she was moving all of her extremities equally. However, she did undergo evaluation with a CT of her head which demonstrated no acute hemorrhage or mass effect and a carotid ultrasound of her surgical site was obtained as well, which demonstrated the patient carotid. After recovering from her anesthesia, the patient's speech was no longer sluggish and she remained stable. She remained alert and oriented without any other focal neurological signs. Labs and vital signs remained stable. She was felt to be stable enough for discharge on postop day #1. PHYSICAL EXAMINATION: VITAL SIGNS: As follows: Temperature of 36.6, pulse of 56, respiratory rate of 17, and a blood pressure of 163/70, pulse oximetry 95% on room air. CONSTITUTIONAL: The patient is a healthy for age, appearing well-nourished, well-developed elderly female in no acute distress. She ambulated without assistance and was active, alert and oriented x4 with normal recent and remote memory. HEAD: Normocephalic and atraumatic. EYES: EOMI. ENT: Demonstrates no hearing loss, rhinorrhea or pharyngeal erythema. NECK: Supple on the right side, her left side is somewhat tender over her surgical site, but there is mild swelling only and no significant ecchymosis. There is no drainage, erythema. Her trachea is midline. LUNGS: Decreased but clear bilaterally. CARDIOVASCULAR: Demonstrated nondisplaced apical impulse with a regular rate and rhythm without murmurs, lifts, heaves, thrills or gallops. Peripheral pulses are full and equal in all extremities unless otherwise noted, specifically they were normal in her brachial, radial and femoral pulses, bilateral lower extremities distal pulses are +2. She had brisk capillary refill and no sign of digital ischemia. ABDOMEN: Soft, nontender with normoactive bowel sounds in all 4 quadrants without guarding or rebound. There was no flank or CVA tenderness. MUSCULOSKELETAL: Demonstrates normal tone and strength for age. Bilateral upper extremities demonstrate no cyanosis, edema, clubbing, varicosities or ulcers. Bilateral lower extremities demonstrate no cyanosis, edema, clubbing, varicosities or ulcers. NEUROLOGIC: The patient has grossly intact cranial nerves and grossly intact sensation and she noted to have a very slight droop at the corner of her right lip; however, she has no other focal signs. DIET UPON DISCHARGE: Should be a low-cholesterol AHA diet. MEDICATIONS: Reconciled on the chart and are as per her discharge instructions. FOLLOWUP: Should be with Dr. Glover or Aruna Johnson PA-C, within 2 weeks for reevaluation and she was advised to call the office with any other questions.
== END 2016-07-06 13:45 | disposition home or self-care (01) | DRG 39 ==
LOC: C.ACU 05:41 → C.MSICU 06:30 → UNDOADMIN 09:32 → C.MSICU 09:32
PROVIDERS: ADMIT Surgery Vascular Surgery; ATTEND Surgery Vascular Surgery
PROC: 03UL0JZ Supplement Left Internal Carotid Artery with Synthetic Substitute, Open Approach (ICD-10-PCS; 2016-07-05)
PROC: 03CL0ZZ Extirpation of Matter from Left Internal Carotid Artery, Open Approach (ICD-10-PCS; principal; 2016-07-05 07:30)
DX: I65.22 Occlusion and stenosis of left carotid artery (principal); I10 Essential (primary) hypertension; E78.00 Pure hypercholesterolemia, unspecified; E78.5 Hyperlipidemia, unspecified; R00.1 Bradycardia, unspecified; R29.810 Facial weakness; G43.909 Migraine, unspecified, not intractable, without status migrainosus; M85.80 Other specified disorders of bone density and structure, unspecified site; L71.9 Rosacea, unspecified; Z79.82 Long term (current) use of aspirin; Z79.899 Other long term (current) drug therapy; Z88.8 Allergy status to other drugs, medicaments and biological substances; Z98.51 Tubal ligation status; Z84.89 Family history of other specified conditions; Z82.49 Family history of ischemic heart disease and other diseases of the circulatory system

== ENCOUNTER → 2016-10-04 | Outpatient (CLI) | payer OTHER ==
[~2016-10-04] MED LIST changes: +ATOR10TA82 PO; -ATOR10TA88 PO; -NAPR1TAB9 PO
[2016-10-04 08:12] LABS: BASO % 0.6 %; BASO ABS # 0.04 K/uL (0-0.2); COMPLETE YES; IG% 0.1 %; LYMPH % 32.1 %; LYMPH ABS # 2.26 K/uL (1.2-3.4); MEAN CELL VOLUME 88.7 fL (80-100); MEAN CORPUSCULAR HEMOGLOBIN 29.7 pg (25-34); MEAN CORPUSCULAR HGB CONC 33.4 g/dl (32-36); MEAN PLATELET VOLUME 9.1 fL (7.4-10.4); MONO % 11.9 %; NEUT % 51.3 %; PLATELET COUNT 293 K/uL (130-400); RED BLOOD COUNT 4.62 M/uL (4.2-5.4); WHITE BLOOD COUNT 7.04 K/uL (4.8-10.8)
[2016-10-04 08:30] LABS: ALT/SGPT 30 U/L (12-78); BLOOD UREA NITROGEN 23 mg/dl (7-18); BUN/CREATININE RATIO 26.6 (10-20); CARBON DIOXIDE 28 mmol/L (21-32); CHLORIDE 107 mmol/L (98-107); CHOLESTEROL 175 mg/dl (0-200); CREATININE 0.85 mg/dl (0.60-1.20); GLUCOSE 95 mg/dl (70-99); POTASSIUM 4.1 mmol/L (3.5-5.1); SODIUM 142 mmol/L (136-145)
[2016-10-04 08:37] LABS: CALCIUM 9.8 mg/dl (8.5-10.1)
[2016-10-04 08:40] LABS: ALKALINE PHOSPHATASE 62 U/L (45-117); AST/SGOT 18 U/L (15-37); CHOLESTEROL/HDL RATIO 2.5; HDL CHOLESTEROL 71 mg/dl; LDL CHOLESTEROL CALCULATED 87 mg/dl; TRIGLYCERIDES 83 mg/dl (0-150); VERY LOW DENSITY LIPOPROT CALC 17 mg/dl
[2016-10-04 09:11] LABS: ESTIMATED AVERAGE GLUCOSE 126 mg/dl; HA1C FLAG Normal (Normal)
--- NOTE | 2016-10-11 06:38 | CODING QUERY MEDICAL NECESSITY ---
CQSUPPORTING DIAGNOSIS NEEDED A supporting diagnosis is required for the test/procedure performed on this patient in order for us to be reimbursed by the patient's insurance. Please provide a supporting diagnosis for the following test/procedure listed below next to the test name along with your signature. *If there is no additional diagnosis for this patient that would support the following test/procedure please document that below next to the test/procedure. Test(s)/Procedure(s) that require a supporting diagnosis: DOS 10/04/16 GLYCATED HEMOGLOBIN TEST VITAMIN D TEST Provider Signature: Date: Thank you Batsheva Chavira Health Information Management Once completed, please kindly fax back to [phone] For questions please call [phone]
== END | disposition home or self-care (01) ==
LOC: C.LAB 07:45
PROVIDERS: ATTEND Internal Medicine
DX: E78.5 Hyperlipidemia, unspecified (principal); E55.9 Vitamin D deficiency, unspecified; R73.03 Prediabetes

== ENCOUNTER → 2017-03-26 | Outpatient (CLI) | payer OTHER ==
[~2017-03-26] MED LIST changes: -ATOR10TA82 PO; +ATOR10TA88 PO
[2017-03-26 11:35] LABS: ALT/SGPT 22 U/L (12-78); AST/SGOT 13 U/L (15-37); BLOOD UREA NITROGEN 23 mg/dl (7-18); BUN/CREATININE RATIO 27.7 (10-20); CALCIUM 9.6 mg/dl (8.5-10.1); CARBON DIOXIDE 26 mmol/L (21-32); CHLORIDE 107 mmol/L (98-107); CREATININE 0.84 mg/dl (0.60-1.20); GLUCOSE 94 mg/dl (70-99); POTASSIUM 4.3 mmol/L (3.5-5.1); SODIUM 141 mmol/L (136-145)
[2017-03-26 11:39] LABS: ESTIMATED AVERAGE GLUCOSE 123 mg/dl; HA1C FLAG Normal (Normal)
[2017-03-26 11:46] LABS: ALKALINE PHOSPHATASE 64 U/L (45-117); CHOLESTEROL 137 mg/dl (0-200); CHOLESTEROL/HDL RATIO 2.3; HDL CHOLESTEROL 59 mg/dl; LDL CHOLESTEROL CALCULATED 65 mg/dl; TRIGLYCERIDES 67 mg/dl (0-150); VERY LOW DENSITY LIPOPROT CALC 13 mg/dl
== END | disposition home or self-care (01) ==
LOC: C.LAB1850 09:23
PROVIDERS: ATTEND Internal Medicine
DX: R73.03 Prediabetes (principal)

== ENCOUNTER 2017-08-13 14:15 | Emergency (ER) | payer OTHER ==
[~2017-08-13] VITALS: Ht 162.6 cm; Wt 53.0 kg
[~2017-08-13 14:15] MED LIST changes: -ASPI81TA28 PO; -OPTIRAY 320 IV PRN
[2017-08-13 14:18] VITALS: TEMP 36.4
[2017-08-13] MEDS ORDERED: SODIUM CHLORIDE 0.9% 1000ML 1,000 ML IV SCH (14:29)
--- NOTE | 2017-08-13 14:37 | EMERGENCY ROOM VISIT NOTE ---
History Report prepared by Jaron: Kendall Porter Under the Supervision of: Dr. Alfie Valenzuela M.D. First contact with patient: 14:22 Chief Complaint: REFERRED BY DOCTOR Stated Complaint: PT NOT SURE History of Present Illness The patient is an 81 year old female who presents to the Emergency Room with complaints of waxing and waning stiffness in her left hand, arm, and shoulder that began at 0900 this morning, 5.5 hours ago. The stiffness started in the left hand and seemed to move its way up to the shoulder. She currently only has pain in the left fingers and elbow. She does believe that she is weak in the left arm. The patient saw Dr. Robertson's PCP Leonor who suggested that she have a CT scan secondary to her history of carotid artery issues and surgery. The patient had the CT scan performed as an outpatient and the radiologist was unable to rule-out a dissection. The patient was then instructed to come to the ED for an ultra sound immediately. The patient does have a history of Left Carotid surgery. She takes an Aspirin daily. 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 A total of 10 systems reviewed and were otherwise negative. Past Medical & Surgical Medical Problems: (1) Stenosis of left internal carotid artery Family History Omitted secondary to the advanced age of the patient. Social History Smoking Status: Never Smoker Drug Use: none Occupation Status: retired Current/Historical Medications Scheduled Amlodipine (Norvasc), 5 MG PO QAM Aspirin (Aspirin Ec), 81 MG PO DAILY Atorvastatin (Lipitor), 10 MG PO QPM Benazepril (Lotensin), 20 MG PO QAM Calcium Citrate-Vitamin D (Citracal + D3 Maximum), 1 TAB PO BID Cholecalciferol (Vitamin D3), 1,000 UNITS PO QPM Fish Oil (Stafford-3), 1,400 MG PO QPM Ibandronate Sodium (Boniva), 150 MG PO MONTHLY Vitamin B Cmplx/Vitc/Folic Ac (Nephrocaps), 1 CAP PO QAM Allergies Coded Allergies: Cholesterol (Verified Allergy, Unknown, UNKNOWN CHOLESTEROL MED - MYALGIA , 07/05/16) Physical Exam Vital Signs Date Time Temp Pulse Resp B/P (MAP) Pulse Ox O2 Delivery O2 Flow Rate FiO2 08/13/17 16:43 66 18 165/95 95 Room Air 08/13/17 16:28 68 08/13/17 16:03 59 18 155/65 98 Room Air 08/13/17 14:58 97 Room Air 08/13/17 14:18 36.4 67 16 174/77 100 Room Air Physical Exam GENERAL: Awake, alert, well-appearing, in no acute distress HENT: Normocephalic, atraumatic. Oropharynx unremarkable. EYES: Normal conjunctiva. Sclera non-icteric. NECK: Supple. No nuchal rigidity. FROM. No JVD. RESPIRATORY: Clear to auscultation. CARDIAC: Regular rate, normal rhythm. Extremities warm and well perfused. Pulses equal. ABDOMEN: Soft, non-distended. No tenderness to palpation. No rebound or guarding. No masses. RECTAL: Deferred. MUSCULOSKELETAL: Chest examination reveals no tenderness. The back is symmetrical on inspection without obvious abnormality. There is no CVA tenderness to palpation. No joint edema. There is 4/5 strength in the left arm. LOWER EXTREMITIES: Calves are equal size bilaterally and non-tender. No edema. No discoloration. NEURO: Normal sensorium. There is 4/5 strength in the left arm. SKIN: No rash or jaundice noted. Medical Decision & Procedures ER Provider Diagnostic Interpretation: Radiology results as stated below per my review and radiologist interpretation: CHEST ONE VIEW PORTABLE HISTORY: 81 years-old Female Stroke acute strokelike symptoms COMPARISON: Chest radiographs 06/19/2016 TECHNIQUE: Portable AP view of the chest FINDINGS: Cardiac silhouette is again enlarged. Atherosclerosis of the aorta. Chronic interstitial coarsening redemonstrated. No pneumothorax, pleural effusion or focal airspace consolidation. No overt pulmonary edema. Degenerative changes noted about the shoulders and spine. IMPRESSION: No acute process. The above report was generated using voice recognition software. It may contain grammatical, syntax or spelling errors. Electronically signed by: Tha Bardales M.D. 08/13/2017 3:12 PM Dictated Date/Time: 08/13/2017 3:11 PM CAROTID DOPPLER NECK ART HISTORY: Dissection. Abnormal CT angiography of the neck Pt dissection on right ? COMPARISON: CT angiography of the neck same date TECHNIQUE: Real-time, grayscale, and color Doppler sonography of the carotid arteries was performed. Imaging reviewed in the transverse and longitudinal planes. All measurements were calculated based on NASCET criteria. FINDINGS: Antegrade flow is seen in the bilateral vertebral arteries. The brachial pressures are hemodynamically similar. Significant plaque formation bilaterally. The peak systolic velocity within the right ICA is 87. The right systolic ratio is 1.2. The peak systolic velocity within the left ICA is 101. The left systolic ratio is 1.1. IMPRESSION: 1. Significant plaque dimension bilaterally.. 2. No evidence for dissection based on ultrasound criteria. 3. No significant stenotic process of the common or internal carotid arteries. 4. Moderate stenosis of the external carotid arteries bilaterally. The above report was generated using voice recognition software. It may contain grammatical, syntax or spelling errors. Electronically signed by: Mike Tracey M.D. 08/13/2017 4:03 PM Dictated Date/Time: 08/13/2017 4:01 PM Laboratory Results 08/13/17 15:00 Red Blood Count 4.73, Mean Corpuscular Volume 87.7, Mean Corpuscular Hemoglobin 29.4, Mean Corpuscular Hemoglobin Concent 33.5, Mean Platelet Volume 9.5, Neutrophils (%) (Auto) 64.4, Lymphocytes (%) (Auto) 23.9, Monocytes (%) (Auto) 8.7, Eosinophils (%) (Auto) 2.1, Basophils (%) (Auto) 0.7, Neutrophils # (Auto) 5.65, Lymphocytes # (Auto) 2.10, Monocytes # (Auto) 0.76, Eosinophils # (Auto) 0.18, Basophils # (Auto) 0.06 08/13/17 15:00 Test 08/13/17 14:41 08/13/17 15:00 08/13/17 15:05 08/13/17 16:04 Bedside Glucose 92 mg/dl (70-90) White Blood Count 8.77 K/uL (4.8-10.8) Red Blood Count 4.73 M/uL (4.2-5.4) Hemoglobin 13.9 g/dL (12.0-16.0) Hematocrit 41.5 % (37-47) Mean Corpuscular Volume 87.7 fL (80-100) Mean Corpuscular Hemoglobin 29.4 pg (25-34) Mean Corpuscular Hemoglobin Concent 33.5 g/dl (32-36) Platelet Count 368 K/uL (130-400) Mean Platelet Volume 9.5 fL (7.4-10.4) Neutrophils (%) (Auto) 64.4 % Lymphocytes (%) (Auto) 23.9 % Monocytes (%) (Auto) 8.7 % Eosinophils (%) (Auto) 2.1 % Basophils (%) (Auto) 0.7 % Neutrophils # (Auto) 5.65 K/uL (1.4-6.5) Lymphocytes # (Auto) 2.10 K/uL (1.2-3.4) Monocytes # (Auto) 0.76 K/uL (0.11-0.59) Eosinophils # (Auto) 0.18 K/uL (0-0.5) Basophils # (Auto) 0.06 K/uL (0-0.2) RDW Standard Deviation 44.8 fL (36.4-46.3) RDW Coefficient of Variation 13.8 % (11.5-14.5) Immature Granulocyte % (Auto) 0.2 % Immature Granulocyte # (Auto) 0.02 K/uL (0.00-0.02) Prothrombin Time 11.1 SECONDS (9.0-12.0) Prothromb Time International Ratio 1.1 (0.9-1.1) Activated Partial Thromboplast Time 25.5 SECONDS (21.0-31.0) Partial Thromboplastin Ratio 1.0 Anion Gap 7.0 mmol/L (3-11) Est Creatinine Clear Calc Drug Dose 42.0 ml/min Estimated GFR () 73.4 Estimated GFR (Non- 63.4 BUN/Creatinine Ratio 25.0 (10-20) Calcium Level 10.2 mg/dl (8.5-10.1) Magnesium Level 2.3 mg/dl (1.8-2.4) Total Creatine Kinase 150 U/L (26-192) Creatine Kinase MB 4.2 ng/ml (0.5-3.6) Creatine Kinase MB Ratio 2.8 (0-3.0) Troponin I < 0.015 ng/ml (0-0.045) Bedside Prothrombin Time INR 1.1 (0.9-1.1) Urine Color DK YELLOW Urine Appearance CLEAR (CLEAR) Urine pH 7.0 (4.5-7.5) Urine Specific [place] > 1.045 (1.000-1.030) Urine Protein NEG (NEG) Urine Glucose (UA) NEG (NEG) Urine Ketones TRACE (NEG) Urine Occult Blood NEG (NEG) Urine Nitrite NEG (NEG) Urine Bilirubin NEG (NEG) Urine Urobilinogen NEG (NEG) Urine Leukocyte Esterase NEG (NEG) Labs reviewed by ED physician. Medications Administered Medications (Trade) Dose Ordered Sig/Anaid Route Start Time Stop Time Status Last Admin Dose Admin Sodium Chloride 1,000 ml @ 50 mls/hr Q20H IV 08/13/17 14:29 08/13/17 17:16 DC 08/13/17 14:29 50 MLS/HR ECG Per My Interpretation Indication: other (Possible dissection) Rate (beats per minute): 57 Rhythm: sinus bradycardia Findings: other (Normal axis, no ST elevation or depression) ED Course 1425: Past medical records reviewed. The patient was evaluated in room C10. A complete history and physical examination was performed. 1429: Ordered Sodium Chloride 1000 mL @ 50 mL/hr IV. 1628: I checked on the patient at this time. She is refusing to stay as an inpatient. I will discharge the patient home with close follow-up by Dr. Glover. 1629: I discussed the case with Dr. Glover - [facility]. He will follow up with the patient in the outpatient office. Medical Decision Differential diagnosis: Etiologies such as metabolic, infection, hypo/hyperglycemia, electrolyte abnormalities, cardiac sources, intracerebral event, toxicologic, neurologic, as well as others were entertained. This is an 81-year-old female who presents the emergency department complaining of abnormal CAT scan of the head. I will note that the patient' CAT scan is unchanged from previouss. She came to the emergency department for an ultrasound. Upon arrival to the emergency department I highly recommended to the patient that she be admitted to the hospital however she is adamantly refusing. Ultrasound does not show any evidence of a dissection in her laboratory work at this point is noncontributory. I again strongly recommended to the patient that she be admitted to the hospital however again she is adamantly refusing. As she is a patient of Dr. George is strongly recommended to the patient that she follow-up with him in the office tomorrow. I did discuss this with Dr. Glover who agreed to see the patient. Strongly cautioned the patient to return to the emergency department to return to the emergency department if her symptoms worsen. Patient was in agreement with the treatment plan. Medication Reconcilliation Current Medication List: was personally reviewed by me Blood Pressure Screening Patient's blood pressure: Elevated blood pressure Blood pressure disposition: Referred to PCP Consults Time Called: 1621 Consulting Physician: Dr. Glover - [facility] Returned Call: [phone] I discussed the case with Dr. Glover - [facility]. He will follow up with the patient in the outpatient office. Impression Primary Impression: Stenosis of right carotid artery Scribe Attestation The scribe's documentation has been prepared under my direction and personally reviewed by me in its entirety. I confirm that the note above accurately reflects all work, treatment, procedures, and medical decision making performed by me. Departure Information Dispostion Home / Self-Care Referrals Devin Robertson M.D. (PCP) Forms HOME CARE DOCUMENTATION FORM, IMPORTANT VISIT INFORMATION, WORK / SCHOOL INSTRUCTIONS Patient Instructions My [facility] Additional Instructions Follow up with Dr Glover's office tomorrow or Return if symptoms worsen You were found to have an elevated blood pressure today (>120 sytolic or >90 diastolic). Per medicare guidelines, you need to follow up with this blood pressure screening with your Primary Care Physician (PCP). For a new PCP call [phone]. You have been examined and treated today on an emergency basis only. This is not a substitute for, or an effort to provide, complete comprehensive medical care. It is impossible to recognize and treat all injuries or illnesses in a single emergency department visit. It is therefore important that you follow up closely with Dr Robertson. Call as soon as possible for an appointment. Thank you for your time and consideration. I look forward to speaking with you again soon. Please don't hesitate to call us if you have any questions.
[2017-08-13 14:58] VITALS: O2SAT 97; Ht 162.6 cm; Wt 53.0 kg
[2017-08-13 15:09] LABS: BASO % 0.7 %; BASO ABS # 0.06 K/uL (0-0.2); EOS % 2.1 %; EOS ABS # 0.18 K/uL (0-0.5); HEMATOCRIT 41.5 % (37-47); HEMOGLOBIN 13.9 g/dL (12.0-16.0); IG# 0.02 K/uL (0.00-0.02); LYMPH % 23.9 %; MEAN CELL VOLUME 87.7 fL (80-100); MEAN CORPUSCULAR HEMOGLOBIN 29.4 pg (25-34); MEAN CORPUSCULAR HGB CONC 33.5 g/dl (32-36); MEAN PLATELET VOLUME 9.5 fL (7.4-10.4); MONO % 8.7 %; MONO ABS # 0.76 K/uL (0.11-0.59); NEUT % 64.4 %; NEUT ABS # 5.65 K/uL (1.4-6.5); PLATELET COUNT 368 K/uL (130-400); RED CELL DISTRIBUTION WIDTH CV 13.8 % (11.5-14.5); RED CELL DISTRIBUTION WIDTH SD 44.8 fL (36.4-46.3); WHITE BLOOD COUNT 8.77 K/uL (4.8-10.8)
--- NOTE | 2017-08-13 15:13 | DIAGNOSTIC IMAGING REPORT ---
CHEST ONE VIEW PORTABLE HISTORY: 81 years-old Female Stroke acute strokelike symptoms COMPARISON: Chest radiographs 06/19/2016 TECHNIQUE: Portable AP view of the chest FINDINGS: Cardiac silhouette is again enlarged. Atherosclerosis of the aorta. Chronic interstitial coarsening redemonstrated. No pneumothorax, pleural effusion or focal airspace consolidation. No overt pulmonary edema. Degenerative changes noted about the shoulders and spine. IMPRESSION: No acute process. The above report was generated using voice recognition software. It may contain grammatical, syntax or spelling errors. Electronically signed by: Tha Bardales M.D. 08/13/2017 3:12 PM Dictated Date/Time: 08/13/2017 3:11 PM
[2017-08-13 15:21] LABS: BLOOD UREA NITROGEN 21 mg/dl (7-18); CALCIUM 10.2 mg/dl (8.5-10.1); CARBON DIOXIDE 27 mmol/L (21-32); CREATININE 0.85 mg/dl (0.60-1.20); GLUCOSE 106 mg/dl (70-99); POTASSIUM 3.9 mmol/L (3.5-5.1); SODIUM 138 mmol/L (136-145)
[2017-08-13 15:25] LABS: INR 1.1 (0.9-1.1); PTT PATIENT 25.5 SECONDS (21.0-31.0)
[2017-08-13 15:26] LABS: CKMB 4.2 ng/ml (0.5-3.6)
--- NOTE | 2017-08-13 16:04 | DIAGNOSTIC IMAGING REPORT ---
CAROTID DOPPLER NECK ART HISTORY: Dissection. Abnormal CT angiography of the neck Pt dissection on right ? COMPARISON: CT angiography of the neck same date TECHNIQUE: Real-time, grayscale, and color Doppler sonography of the carotid arteries was performed. Imaging reviewed in the transverse and longitudinal planes. All measurements were calculated based on NASCET criteria. FINDINGS: Antegrade flow is seen in the bilateral vertebral arteries. The brachial pressures are hemodynamically similar. Significant plaque formation bilaterally. The peak systolic velocity within the right ICA is 87. The right systolic ratio is 1.2. The peak systolic velocity within the left ICA is 101. The left systolic ratio is 1.1. IMPRESSION: 1. Significant plaque dimension bilaterally.. 2. No evidence for dissection based on ultrasound criteria. 3. No significant stenotic process of the common or internal carotid arteries. 4. Moderate stenosis of the external carotid arteries bilaterally. The above report was generated using voice recognition software. It may contain grammatical, syntax or spelling errors. Electronically signed by: Mike Tracey M.D. 08/13/2017 4:03 PM Dictated Date/Time: 08/13/2017 4:01 PM
[2017-08-13] MEDS ORDERED: ASPI81TA28 PO (16:27)
[2017-08-13 16:43] VITALS: BP 165/95; PULSE 66; O2SAT 95
== END 2017-08-13 16:58 | disposition home or self-care (01) ==
LOC: C.EDB 14:16 → C.EDC 16:58
DX: I65.23 Occlusion and stenosis of bilateral carotid arteries (principal); R53.1 Weakness; Z79.899 Other long term (current) drug therapy; Z79.82 Long term (current) use of aspirin; Z88.8 Allergy status to other drugs, medicaments and biological substances

== ENCOUNTER → 2017-08-13 | Outpatient (CLI) | payer OTHER ==
[~2017-08-13] MED LIST changes: +ASPI81TA28 PO; +ATOR10TA82 PO; -ATOR10TA88 PO; +OPTIRAY 320 IV PRN
[2017-08-13 13:06] LABS: BLOOD UREA NITROGEN 21 mg/dl (7-18); CREATININE 0.86 mg/dl (0.60-1.20)
--- NOTE | 2017-08-13 13:28 | DIAGNOSTIC IMAGING REPORT ---
CT HEAD WITHOUT CONTRAST (CT) CLINICAL HISTORY: R29.898 Left arm weakness. Possible stroke COMPARISON STUDY: 07/05/2016 TECHNIQUE: Axial CT of the brain is performed from the vertex to the skull base. IV contrast was not administered for this examination. A dose lowering technique was utilized adhering to the principles of ALARA. CT DOSE: FINDINGS: No intra or extra-axial mass lesions are visualized. There is no CT evidence of acute cortical infarction. There is no evidence of midline shift. There is no acute hemorrhage. No calvarial fractures are visualized. There are patchy white matter hypodensities likely on a small vessel basis. There is no evidence of pathologic ventricular dilatation. There is no evidence of acute sinusitis IMPRESSION: No acute intracranial findings Electronically signed by: Aaron Stiles M.D. 08/13/2017 1:27 PM Dictated Date/Time: 08/13/2017 1:24 PM
--- NOTE | 2017-08-13 13:37 | DIAGNOSTIC IMAGING REPORT ---
NECK ANGIO WITH CONTRAST CLINICAL HISTORY: 81 years-old Female presenting with left arm weakness. TECHNIQUE: Multidetector CT angiography of the neck was performed after the administration of intravenous contrast. 3-D volumetric and/or maximum intensity projection (MIP) images were subsequently reconstructed for review. IV contrast: 92 mL of Optiray 320. A dose lowering technique was used consistent with the principles of ALARA (as low as reasonably achievable). Stenosis measurements were based on NASCET-like criteria. COMPARISON: CTA from 05/25/2016 and carotid Doppler from 07/05/2016. CT DOSE (mGy.cm): The estimated cumulative dose is 926.77 mGy.cm. FINDINGS: Sports Book Writer topogram: Unremarkable. Atherosclerosis of the three-vessel aortic arch. Patent origins of the cervical vessels. Bilateral common carotid arteries widely patent. Postsurgical changes of endarterectomy in the distal left common carotid, left carotid bifurcation, and proximal left internal carotid artery. This segment of the artery is widely patent. Tortuosity of the mid left ICA could imply chronic hypertension. Atherosclerosis of the right carotid bulb with calcified atherosclerotic plaque severely narrowing the lumen of the right external carotid artery. The origin of the right internal carotid artery remains patent with less than 25% stenosis. The mid right internal carotid artery demonstrates a linear intraluminal defect (series 4 image 269), however, extensive streak artifact from amalgam degrades evaluation and may account for this appearance. The distal right ICA is widely patent. Atherosclerosis without significant narrowing in the cavernous segments of the internal carotid arteries. Calcified plaque severely narrows the origin of the right vertebral artery. Widely patent origin of the dominant left vertebral artery. Remaining courses of the vertebral arteries also widely patent. IMPRESSION: 1. Linear intraluminal defects in the mid right ICA is felt most likely to be due to artifact arising from amalgam and oral cavity. Less likely, this represents dissection. This appearance is fairly similar to the prior exam. This abnormality is located at the angle of the mandible and may or may not be amenable to carotid Doppler ultrasound interrogation to confirm the artifactual nature of this appearance. 2. Postsurgical changes of left endarterectomy of the distal left common carotid artery to the proximal left internal carotid artery. Left common and internal carotid arteries widely patent. 3. Severe stenosis of the origin of the right external carotid artery. 4. 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 Left dominant vertebral artery. Electronically signed by: Devin Mario M.D. 08/13/2017 1:36 PM Dictated Date/Time: 08/13/2017 1:27 PM
== END | disposition home or self-care (01) ==
LOC: C.CTS 12:07
PROVIDERS: ATTEND Nurse Practitioner Adult Health
DX: I65.21 Occlusion and stenosis of right carotid artery (principal); R29.898 Other symptoms and signs involving the musculoskeletal system

== ENCOUNTER → 2017-10-08 | Outpatient (CLI) | payer OTHER ==
[~2017-10-08] MED LIST changes: -ASPEC81 PO; +ASPI81TA28 PO; -METROGEL TOP; -MULT-506 PO
[2017-10-08 11:45] LABS: HEMOGLOBIN A1C 5.9 % (4.5-5.6)
== END | disposition home or self-care (01) ==
LOC: C.LABBC 08:20
PROVIDERS: ATTEND Internal Medicine
DX: E03.9 Hypothyroidism, unspecified (principal); E78.5 Hyperlipidemia, unspecified; R73.03 Prediabetes